=== PATIENT | male | born 1950 | race Caucasian/White ===

== ENCOUNTER 2019-01-10 11:07 | Emergency (ER) | payer OTHER, MEDICARE ==
--- NOTE | 2019-01-10 11:09 | PDOC ---
History of Present Illness - General Chief Complaint: Syncope/Near Syncope Stated Complaint: SYNCOPE Time Seen by Provider: 01/10/19 11:09 - History of Present Illness Initial Comments: 01/10/19 11:12 68 year old man with a history of who presents with nausea, lightheadedness and diaphoresis that occurred after he walked up 4 stories and walking around for 45 min. This is the first time the patient has ambulated since a R foot surgery 2.5 weeks ago. The family reports that after walking up 4 floors and staying on his feet in the house for 45 minutes as he was leaving the house he began shaking and sating down with his head back. reports this same episode happened 1 month ago with a similar presentation ROS GENERAL/CONSTITUTIONAL: No fever or chills. No weakness. CARDIOVASCULAR: No chest pain or shortness of breath RESPIRATORY: No cough, wheezing, or hemoptysis. GASTROINTESTINAL: + nausea, vomiting, No diarrhea or constipation. GENITOURINARY: No dysuria, frequency, or change in urination. MUSCULOSKELETAL: No joint or muscle swelling or pain. No neck or back pain. SKIN: No rash NEUROLOGIC: No headache, vertigo, loss of consciousness, or change in strength/ sensation. PE GENERAL: Awake, alert, and fully oriented, in no acute distress HEAD: No signs of trauma, normocephalic, atraumatic EYES: PERRLA, EOMI, sclera anicteric, conjunctiva clear ENT:oropharynx clear without exudates. Moist mucosa NECK: Normal ROM, supple LUNGS: No distress, speaks full sentences, clear to auscultation bilaterally HEART: Regular rate and rhythm, normal S1 and S2, no murmurs, rubs or gallops, peripheral pulses normal and equal bilaterally. ABDOMEN: Soft, nontender, normoactive bowel sounds. No guarding, no rebound. No masses EXTREMITIES : Normal inspection, Normal range of motion, no edema. No clubbing or cyanosis. NEUROLOGICAL: Cranial nerves II through XII grossly intact. Normal speech, normal gait, no focal sensorimotor deficits SKIN: Warm, Dry, normal turgor, no rashes or lesions noted MDM DDX including but not limited to: arrythmia vs acs r/.o hypoglycemia r/o PE consider orthostatic vs vasovagal syncope W/U: - cardiac labs ED Course: ekg nsr at elevate d-dimer CTA chest CTA negative plan for discharge with cardiology follow up Venus Chandra, PGY2 Emergency Medicine Past History - Past Medical History Allergies/Adverse Reactions: Allergies Allergy/AdvReac Type Severity Reaction Status Date / Time No Known Allergies Allergy Verified 01/10/19 11:08 Home Medications: Ambulatory Orders Cholecalciferol (Vitamin D3) [Vitamin D3] 2,000 unit PO DAILY 12/17/13 Red Yeast Rice 600 mg PO DAILY 12/17/13 Cyanocobalamin (Vitamin B-12) [Vitamin B12] 2,500 mcg PO ASDIR tablet 03/08/15 Aspirin [Aspirin EC] 81 mg PO BID 01/10/19 Anemia: No Asthma: No Cancer: No Cardiac Disorders: No CVA: No COPD: No CHF: No Dementia: No Diabetes: No GI Disorders: No Disorders: No HTN: No Hypercholesterolemia: No Liver Disease: No Seizures: No Thyroid Disease: No - Surgical History Abdominal Surgery: Yes (Inguinal Hernia Repair) Appendectomy: No Cardiac Surgery: No Cholecystectomy: No Lung Surgery: No Neurologic Surgery: No Orthopedic Surgery: No - Psycho Social/Smoking Cessation Hx Smoking History: Never smoked Have you smoked in the past 12 months: No Number of Cigarettes Smoked Daily: 0 Hx Alcohol Use: No Drug/Substance Use Hx: No Substance Use Type: None Hx Substance Use Treatment: No ED Treatment Course - LABORATORY CBC & Chemistry Diagram: 01/10/19 11:20 01/10/19 11:20 Discharge - Discharge Information Problems reviewed: Yes Clinical Impression/Diagnosis: Pre-syncope Condition: Stable Disposition: HOME - Admission No - Follow up/Referral Referrals: Adrián Burton MD [Primary Care Provider] - Benito Pena MD [Staff Physician] - - Patient Discharge Instructions Patient Printed Discharge Instructions: DI for Syncope in Adults (Fainting) Additional Instructions: You were seen in the ED for complaints of near loss of consciousness. Your labwork and imaging were unremarkable. You have a referral for Cardiology and should follow up within 1 week. Return to the ED if you have repeat symptoms, chest pain, shortness of breath, nausea, sweating, swelling in the legs or loss of consciousness. - Post Discharge Activity
[2019-01-10] MEDS ORDERED: SODIUM CHLORIDE 1,000 ML IV SCH (11:15)
[2019-01-10 11:26] VITALS: BMI 26.1
[2019-01-10 11:40] LABS: BASO % 0.7 % (0-2.0); EOS % 0.9 % (0-4.5); HEMATOCRIT 39.7 % (35.4-49); HEMOGLOBIN 14.1 GM/dl (11.7-16.9); LYMPH % 18.8 % (8-40); MCH 32.3 pg (25.7-33.7); MCHC 35.5 g/dl (32.0-35.9); MEAN CELL VOLUME 90.9 fl (80-96); MEAN PLT VOLUME 7.5 fl (7.5-11.1); MONO % 3.4 % (3.8-10.2); NEUT % 76.2 % (42.8-82.8); PLATELET COUNT 278 K/MM3 (134-434); RBC 4.37 M/mm3 (4.00-5.60); RDW 11.8 % (11.9-15.9); WHITE BLOOD COUNT 7.1 K/mm3 (4.0-10.8)
[2019-01-10 11:43] LABS: ALBUMIN 3.7 g/dl (3.4-5.0); BILIRUBIN,TOTAL 0.5 mg/dl (0.2-1); CALCIUM 9.1 mg/dl (8.5-10); CREATININE 1.2 mg/dl (0.55-1.3); TOT PROT 6.8 g/dl (6.4-8.2)
--- NOTE | 2019-01-10 12:15 | PDOC ---
Attending Attestation - Resident Resident Name: CyChristopher galindoie - ED Attending Attestation I have performed the following: I have examined & evaluated the patient, The case was reviewed & discussed with the resident, I agree w/resident's findings & plan, Exceptions are as noted - HPI HPI: 01/10/19 12:03 68 M with h/o BPH, recent R foot surgery 3 weeks ago, presenting to ED with pre- syncope. Pt states that he has had minimal activity for the past 3 weeks as he was recuperating from foot surgery. Today, he climbed 3 flights of stairs and walked around for 45 minutes. While he was descending the stairs, he became very lightheaded. Pt states he sat down and rested. He did not lose consciousness. Denies CP/SOB/palpitations. After approx 5 minutes, he returned to baseline. Pt currently denies any symptoms. Pt states that he had a similar episode 4 years ago when he completely syncopized. He was admitted to a hospital and had several tests run, but he states that they never diagnosed him with anything. - Physicial Exam PE: 01/10/19 12:15 "GENERAL: Awake, alert, and fully oriented, in no acute distress. HEAD: No signs of trauma EYES: PERRLA, EOMI, sclera anicteric, conjunctiva clear ENT: Auricles normal inspection, hearing grossly normal, nares patent, oropharynx clear without exudates. Moist mucosa NECK: Nontender, no stepoffs, Normal ROM, supple, no lymphadenopathy, JVD, or masses LUNGS: Breath sounds equal, clear to auscultation bilaterally. No wheezes, and no crackles HEART: Regular rate and rhythm, normal S1 and S2, no murmurs, rubs or gallops ABDOMEN: Soft, nontender, normoactive bowel sounds. No guarding, no rebound. No masses EXTREMITIES: Normal range of motion, no edema. No clubbing or cyanosis. No cords, erythema, or tenderness NEUROLOGICAL: Cranial nerves II through XII intact. 5/5 strength and sensation in all extremities, Normal speech, normal gait, normal cerebellar function SKIN: Warm, Dry, normal turgor, no rashes or lesions noted. - Medical Decision Making 01/10/19 12:17 68 M with pre-syncope. Suspect vasovagal vs deconditioning from recent surgery. EKG with no arrhythmia. Pt denies CP/SOB but will r/o ACS and PE. - Labs, trop, ddimer - CXR, UA - IVF 01/10/19 13:06 CXR clear Ddimer >1300 Labs otherwise wnl, trop negative x1 Will obtain CTA chest to r/o PE 01/10/19 16:12 CTA negative Trop negative x2 I discussed with pt the possibility of paroxysmal arrhythmia as cause of his dizziness and suggested admission for tele monitoring. However, pt refuses, stating that he feels well. He opts to f/u with cards tomorrow instead. Pt is well appearing, with normal vitals. Clinically stable for DC at this time. I discussed the physical exam findings, ancillary test results and final diagnoses with the patient. I answered all of the patient's questions. The patient was satisfied with the care received and felt comfortable with the discharge plan and treatment plan. The patient agrees to follow up with the primary care physician within 24-72 hours.
[2019-01-10 14:15] LABS: EPITHELIAL CELLS FEW /hpf
--- NOTE | 2019-01-10 15:53 | EKG ---
Test Reason : Blood Pressure : / mmHG Vent. Rate : 062 BPM Atrial Rate : 062 BPM P-R Int : 162 ms QRS Dur : 088 ms QT Int : 410 ms P-R-T Axes : 078 067 065 degrees QTc Int : 416 ms NORMAL SINUS RHYTHM NORMAL ECG NO PREVIOUS ECGS AVAILABLE Confirmed by TESSIE SOTELO, JAIRO ([id number]) on 01/10/2019 3:52:40 PM Referred By: SUZANNA MARKS Confirmed By:JAIRO KURTZ MD
[2019-01-10 16:20] VITALS: BP 134/65; PULSE 69; TEMP 97.8
== END 2019-01-10 16:20 | disposition home or self-care (01) ==
LOC: SUPCPDRO 11:07 → FER 11:07
DX: R55 Syncope and collapse (principal); N40.0 Benign prostatic hyperplasia without lower urinary tract symptoms
CPT/HCPCS: 36415; 71045-TC-FY; 71275-TC; 80053; 81003; 81015; 82962; 83880; 84484; 85025; 85379; 87086; 93005; 99285-25; J7030

== ENCOUNTER 2021-04-21 09:26 | Day surgery (SDC) | payer OTHER, MEDICARE ==
[2021-04-16 13:24] VITALS: BMI 24.9
[2021-04-21] MEDS: CIPROFLOXACIN 0.3% EYE DROPS 5 ML BOTTLE ONE ×3 (10:20→10:30)
[2021-04-21] MEDS: TROPICAMIDE 1% OPHTH SOLN 15 ML BOTTLE ONE ×3 (10:20→10:30)
[2021-04-21] MEDS: CYCLOPENTOLATE 2% OPHTH SOLN 2 ML BOTTLE ONE ×3 (10:20→10:30)
[2021-04-21] MEDS: PHENYLEPHRINE 2.5% OPHTH SOLN 15 ML BOTTLE ONE ×3 (10:20→10:30)
[2021-04-21] MEDS ORDERED: MIDAZOLAM HCL 2 MG/2 ML SINGLE DOSE VIAL ONE (11:35)
[2021-04-21 12:13] VITALS: TEMP 97.9
[2021-04-21 12:25] VITALS: BP 137/76; PULSE 72
== END 2021-04-21 12:30 | disposition home or self-care (01) ==
LOC: FASU 09:26
PROVIDERS: ATTEND Ophthalmology
PROC: 08RJ3JZ Replacement of Right Lens with Synthetic Substitute, Percutaneous Approach (ICD-10-PCS; principal; 2021-04-21 11:43)
DX: H26.8 Other specified cataract (principal)

== ENCOUNTER 2021-05-19 07:04 | Day surgery (SDC) | payer OTHER, MEDICARE ==
[2021-05-17 14:23] VITALS: BMI 24.9
[2021-05-19] MEDS ORDERED: CARBACHOL 0.01% INTRA-OCULAR 1.5 ML VIAL ONE (07:12)
[2021-05-19] MEDS ORDERED: LIDOCAINE 1% P/F 10 MG/ML VIAL ONE (07:12)
[2021-05-19] MEDS ORDERED: NEO/POLYMYX B SULF/DEXAMETH OPHTHALMIC 5ML BOTTLE ONE (07:12)
[2021-05-19] MEDS ORDERED: TETRACAINE 0.5% OPHTH SOLN 2 ML BOTTLE ONE (07:12)
[2021-05-19] MEDS ORDERED: BSS (NA/CA/MG/K) BALANCED SALT SOLUTION OPHTH SOLN 15 ML BOTTLE ONE (07:12)
[2021-05-19] MEDS: PHENYLEPHRINE 2.5% OPHTH SOLN 15 ML BOTTLE ONE ×3 (07:25→07:35)
[2021-05-19] MEDS: CYCLOPENTOLATE 2% OPHTH SOLN 2 ML BOTTLE ONE ×3 (07:25→07:35)
[2021-05-19] MEDS: TROPICAMIDE 1% OPHTH SOLN 15 ML BOTTLE ONE ×3 (07:25→07:35)
[2021-05-19] MEDS: CIPROFLOXACIN 0.3% EYE DROPS 5 ML BOTTLE ONE ×3 (07:25→07:35)
[2021-05-19] MEDS ORDERED: MIDAZOLAM HCL 2 MG/2 ML SINGLE DOSE VIAL ONE (08:56)
[2021-05-19 12:51] VITALS: TEMP 98
[2021-05-19 12:54] VITALS: BP 135/90; PULSE 75
== END 2021-05-19 10:00 | disposition home or self-care (01) ==
LOC: FASU 07:04
PROVIDERS: ATTEND Ophthalmology
PROC: 08RK3JZ Replacement of Left Lens with Synthetic Substitute, Percutaneous Approach (ICD-10-PCS; principal; 2021-05-19 08:30)
DX: H26.8 Other specified cataract (principal)